=== PATIENT | male | born 1985 | race African-American/Black ===

== ENCOUNTER 2017-02-07 14:18 | Emergency (ER) | payer OTHER ==
[2017-02-07 15:57] VITALS: BP 120/71
== END 2017-02-07 15:57 | disposition home or self-care (01) ==
LOC: ED 14:18
DX: S80.212A Abrasion, left knee, initial encounter (principal); S80.211A Abrasion, right knee, initial encounter; W17.89XA Other fall from one level to another, initial encounter; Y93.89 Activity, other specified; Y99.8 Other external cause status; Y92.89 Other specified places as the place of occurrence of the external cause

== ENCOUNTER 2017-02-26 05:23 | Emergency (ER) | payer OTHER ==
[2017-02-26 06:11] VITALS: BP 132/60
== END 2017-02-26 07:45 | disposition home or self-care (01) ==
LOC: ED 05:23
DX: S80.212D Abrasion, left knee, subsequent encounter (principal); S80.211D Abrasion, right knee, subsequent encounter; J45.909 Unspecified asthma, uncomplicated; Z88.2 Allergy status to sulfonamides; X58.XXXD Exposure to other specified factors, subsequent encounter

== ENCOUNTER 2017-04-23 03:40 | Emergency (ER) | payer OTHER ==
[2017-04-23 03:47] VITALS: BP 130/74
== END 2017-04-23 04:37 | disposition left against medical advice (07) ==
LOC: ED 03:40
DX: Z53.21 Procedure and treatment not carried out due to patient leaving prior to being seen by health care provider (principal)

== ENCOUNTER 2020-02-07 16:27 | Emergency (ER) | payer OTHER ==
[~2020-02-07] VITALS: Ht 172.7 cm; Wt 69.4 kg
[2020-02-07 16:42] VITALS: Ht 172.7 cm; Wt 69.4 kg
[2020-02-07 17:16] VITALS: BP 112/74
== END 2020-02-07 17:16 | disposition home or self-care (01) ==
LOC: ED 16:27
DX: S90.521A Blister (nonthermal), right ankle, initial encounter (principal); W57.XXXA Bitten or stung by nonvenomous insect and other nonvenomous arthropods, initial encounter; Y93.89 Activity, other specified; Y92.89 Other specified places as the place of occurrence of the external cause; Y99.8 Other external cause status

== ENCOUNTER 2020-05-25 12:52 | Emergency (ER) | payer OTHER ==
[~2020-05-25] VITALS: Ht 170.2 cm; Wt 70.8 kg
[2020-05-25 13:00] VITALS: Ht 170.2 cm; Wt 70.8 kg
[2020-05-25 13:55] LABS: PLATELET COUNT 246 x10^3mcL (130-400); RED CELL DISTRIBUTION WIDTH 13.6 % (11.5-14.5)
[2020-05-25 13:57] LABS: BASOPHIL % 0 % (0-2)
[2020-05-25 14:42] LABS: CALCIUM 9.8 mg/dL (8.5-10.1); CARBON DIOXIDE 24.7 mmol/L (21-32); CHLORIDE SERUM 101 mmol/L (98-107); GFR1 > 60 mL/min; GLUCOSE SERUM 87 mg/dL (74-106); POTASSIUM SERUM 3.5 mmol/L (3.5-5.1); SODIUM SERUM 137 mmol/L (136-145)
[2020-05-25 14:48] LABS: ALBUMIN 4.4 g/dL (3.4-5.0); ALKALINE PHOSPHATASE 69 U/L (46-116); ALT/SGPT 27 U/L (16-63); AST/SGOT 77 U/L (15-37); BILIRUBIN TOTAL 0.9 mg/dL (0.20-1.00); TOTAL PROTEIN, SERUM 7.6 g/dL (6.4-8.2)
[2020-05-25 15:17] VITALS: BP 120/75
== END 2020-05-25 15:17 | disposition home or self-care (01) ==
LOC: ED 12:52
PROVIDERS: Emergency Medicine
DX: E86.0 Dehydration (principal); H53.8 Other visual disturbances